=== PATIENT | female | born 1945 | race Caucasian/White ===

== ENCOUNTER 2021-11-20 14:54 | Outpatient (CLI) | payer MEDICARE, SELFPAY ==
--- NOTE | 2021-11-20 15:00 | CRLHL7_ITS ---
For Patients: As a result of the Century Cures Act, medical imaging exams and procedure reports are released immediately into your electronic medical record. You may view this report before your referring provider. If you have questions, please contact your health care provider. BILATERAL MAMMOGRAM WITH COMPUTER-AIDED DETECTION AND TOMOSYNTHESIS TECHNIQUE: CC and MLO views were obtained. These mammographic images have been obtained using full-field digital technique. These mammographic images were interpreted with the benefit of computer-aided detection. Breast Tomosynthesis was used in this interpretation. COMPARISON FILM: 10/15/2020, 10/13/2019, 07/19/2018. FINDINGS: There are scattered areas of fibroglandular density IMPRESSION: There is no radiographic evidence for malignancy. ASSESSMENT: BI-RADS Category 1: Negative RECOMMENDATION: Routine screening mammogram in 1 year. A lay language report of this examination will be provided to the patient. Rudolph Mancuso M.D. Diagnostic Radiologist [email or web address] ARUNA/Dictated by: Rudolph Mancuso MD @ 11/21/2021 10:04:00 AM (Electronically Signed)
== END 2021-11-20 14:55 | disposition home or self-care (01) ==
LOC: MAMMO 14:55
PROVIDERS: PCP Family Medicine; Visit Provider Family Medicine
DX: Z12.31 Encounter for screening mammogram for malignant neoplasm of breast (principal)
CPT/HCPCS: 77063; 77067

== ENCOUNTER 2021-12-16 08:02 | Outpatient (CLI) | payer MEDICARE, SELFPAY ==
--- NOTE | 2021-12-16 08:30 | CRLHL7_ITS ---
For Patients: As a result of the Century Cures Act, medical imaging exams and procedure reports are released immediately into your electronic medical record. You may view this report before your referring provider. If you have questions, please contact your health care provider. [facility] ??? [facility]BI[facility]AG[facility] MYOCARDIAL PERFUSION SCAN, 12/16/2021 CLINICAL HISTORY: 76-year-old female. Chest pain. Fatigue. Hypertension. Hyperlipidemia. Height 5 feet 5 inches, weight 230 pounds. TECHNIQUE: (Resting SPECT and stress gated SPECT with wall motion and ejection fraction) Stress: Pharmacologic ??? regadenoson (walking protocol, 0.4 mg IV) Dose (Stress/Rest): 37.9 mCi technetium-labeled sestamibi/10.3 mCi technetium-labeled sestamibi Comparison: None FINDINGS: There is good uptake of activity by the left ventricle. No left ventricular enlargement is noted. End-diastolic volume 61 mL. End-systolic volume 18 mL. There is diffuse soft tissue attenuation artifact compatible with breast attenuation artifact. There is also mild motion artifact on stress and less so on rest images. There are no significant fixed or reversible defects identified to indicate infarct or ischemia. The gated images demonstrate a normal left ventricular ejection fraction of 70%. No regional wall motion abnormalities are identified. IMPRESSION: 1) No evidence of significant myocardial ischemia or infarction. 2) Normal left ventricular ejection fraction of 70%. This study was jointly reviewed by Radiology and Cardiology. SCOORRO WEST M.D. Diagnostic/Nuclear Medicine Radiologist [facility] [employer] [facility] [email or web address] Transcribed: 3:18 p.mMaximino TURCIOS M.D. Department of Cardiology RD/Dictated by: Socorro West MD @ 12/16/2021 1:13:00 PM (Electronically Signed)
[2021-12-16 10:54] VITALS: BP 162/70; PULSE 83; RESP 16
[2021-12-16] MEDS: REGADENOSON 0.4 MG/5 ML SYRINGE IVP (10:58)
[2021-12-16] MEDS: SODIUM CHLORIDE 0.9 % (FLUSH) 10 ML SYRINGE IVF (10:59)
--- NOTE | 2021-12-16 17:10 | PM.ST ---
Stress Test Note Date Date Seen: 12/16/21 Date of test: 12/16/21 Providers Primary care provider: Roberto Carlos Arevalo Stress test physician: Jovan Hanna Stress Test Note Stress test ordered: Lexiscan Indication for test: Abnormal result of cardiac vascular function Stress test medicine: Lexiscan Results discussion: Patient is a very nice 76-year-old female who presents for the above test after discussion the risks benefits and side effects he would like to proceed cardiac stress test medical history form is reviewed. Pretest EKG shows normal sinus rhythm with a ventricular rate of 73 and a blood pressure 139/80. Diffuse ST wave says Flattening is noted. Standard infusion of Lexiscan is done over 5 minute. Maximum heart rate was 120, which is 96% of the maximum, there is no ST wave changes suggestive of ischemia, there is no dysrhythmia other than sinus tachycardia , she had no significant symptoms. Impression: Negative electrographic portion of stress Lexiscan Follow up suggested: Follow-up with primary care once nuclear images get red jointly by Cardiology and nuclear Medicine. Patient left this testing facility in excellent condition and dictation
== END 2021-12-16 08:03 | disposition home or self-care (01) ==
PROVIDERS: PCP Family Medicine; Visit Provider Family Medicine
DX: R07.89 Other chest pain (principal)
CPT/HCPCS: 78452; 93016; 93017; A9500; J2785

== ENCOUNTER 2022-11-16 08:43 | Outpatient (CLI) | payer MEDICARE, SELFPAY | END 2022-11-16 08:44 | disposition home or self-care (01) | PROVIDERS: PCP Family Medicine; Visit Provider Family Medicine | DX: I10 Essential (primary) hypertension (principal); E78.5 Hyperlipidemia, unspecified; E66.9 Obesity, unspecified; R53.83 Other fatigue; Z13.21 Encounter for screening for nutritional disorder; Z13.29 Encounter for screening for other suspected endocrine disorder | CPT/HCPCS: 80048; 80061; 82607; 84443 ==

== ENCOUNTER 2022-12-17 11:27 | Outpatient (CLI) | payer MEDICARE, SELFPAY ==
--- NOTE | 2022-12-17 11:30 | CRLHL7_ITS ---
For Patients: As a result of the Cures Act, medical imaging exams and procedure reports are released immediately into your electronic medical record. You may view this report before your referring provider. If you have questions, please contact your health care provider. BILATERAL SCREENING MAMMOGRAM WITH COMPUTER-AIDED DETECTION AND TOMOSYNTHESIS TECHNIQUE: CC and MLO views were obtained. These mammographic images have been obtained using full-field digital technique. These mammographic images were interpreted with the benefit of computer-aided detection. Breast Tomosynthesis was used in this interpretation. COMPARISON FILM: 11/20/21, 10/15/20, 10/13/19. FINDINGS: There are scattered areas of fibroglandular density IMPRESSION: There is no radiographic evidence for malignancy. ASSESSMENT: BI-RADS Category 1: Negative RECOMMENDATION: Routine screening mammogram in 1 year. A lay language report of this examination will be provided to the patient. Rudolph Mancuso M.D. Diagnostic Radiologist [email or web address] OLIVIA/you Transcribed: 4:33 p.mMaximino orta/Dictated by: Rudolph Mancuso MD @ 12/17/2022 12:10:00 PM (Electronically Signed)
== END 2022-12-17 11:28 | disposition home or self-care (01) ==
LOC: MAMMO 11:28
PROVIDERS: PCP Family Medicine; Visit Provider Family Medicine
DX: Z12.31 Encounter for screening mammogram for malignant neoplasm of breast (principal)
CPT/HCPCS: 77063; 77067

== ENCOUNTER 2023-11-19 08:35 | Outpatient (CLI) | payer MEDICARE, SELFPAY | END 2023-11-19 08:36 | disposition home or self-care (01) | PROVIDERS: PCP Family Medicine; Visit Provider Family Medicine | DX: Z00.00 Encounter for general adult medical examination without abnormal findings (principal); I10 Essential (primary) hypertension; E78.00 Pure hypercholesterolemia, unspecified; Z13.0 Encounter for screening for diseases of the blood and blood-forming organs and certain disorders involving the immune mechanism | CPT/HCPCS: 80048; 80061 ==

== ENCOUNTER 2024-11-21 09:39 | Outpatient (CLI) | payer MEDICARE, SELFPAY ==
[2024-11-21 13:38] LABS: Chloride* 103 mmol/L (96-114); Potassium* 5.2 mmol/L (3.6-5.1); Sodium* 141 mmol/L (135-149)
[2024-11-21 13:40] LABS: Blood Urea Nitrogen* 16 mg/dL (7-30); Cholesterol* 161 mg/dL (90-199); Creatinine* 0.8 mg/dL (0.5-1.5); Estimated Glomerular Filt Rate 76 ml/min
[2024-11-21 13:41] LABS: Anion Gap 9 mEq/L (7-15); Calcium* 10.3 mg/dL (8.4-10.6); Carbon Dioxide* 29 mmol/L (20-32); Glucose* 99 mg/dL (60-115); HDL Cholesterol* 54 mg/dL (>=50); Triglycerides* 97 mg/dL (40-149)
== END 2024-11-21 09:40 | disposition home or self-care (01) ==
PROVIDERS: PCP Family Medicine; Visit Provider Family Medicine
DX: E78.00 Pure hypercholesterolemia, unspecified (principal); I10 Essential (primary) hypertension
CPT/HCPCS: 80048; 80061

== ENCOUNTER 2024-11-27 11:03 | Outpatient (CLI) | payer MEDICARE, SELFPAY ==
--- NOTE | 2024-11-27 12:29 | P.ANES_ITS ---
Anesthesia Charges Start Date/Time Anesthesia Start Date: 11/27/24 Anesthesia Start Time: 11:53 Stop Date/Time Anesthesia Stop Date: 11/27/24 Anesthesia Stop Time: 12:24 Summary Extremes of Age - Over 70 or under 1: MAILS SUPERVISOR Coding CPT Codes CPT Codes: ANES LWR INTST NDSC NOS - 99157 ([id number]) P3 - PATIENT W/SEVERE SYS DISEASE, QK - CODE ENFORCEMENT INSPECTOR 2-4 CNCRNT ANES PROC, QX - MAILS SUPERVISOR SVC W/ MD MED DIRECTION Additional Codes: Summary - Extremes of Age - Over 70 or under 1: MAILS SUPERVISOR ([id number])
--- NOTE | 2024-11-27 12:29 | W.ANESCHARGE ---
Anesthesia Charges Start Date/Time Anesthesia Start Date: 11/27/24 Anesthesia Start Time: 11:53 Stop Date/Time Anesthesia Stop Date: 11/27/24 Anesthesia Stop Time: 12:24 Summary Extremes of Age - Over 70 or under 1: GEOTHERMAL ELECTRICAL ENGINEER Coding CPT Codes CPT Codes: ANES LWR INTST NDSC NOS - 69285 ([id number]) P3 - PATIENT W/SEVERE SYS DISEASE, QK - MARKETING CAMPAIGN ANALYST 2-4 CNCRNT ANES PROC, QX - GEOTHERMAL ELECTRICAL ENGINEER SVC W/ MD MED DIRECTION Additional Codes: Summary - Extremes of Age - Over 70 or under 1: GEOTHERMAL ELECTRICAL ENGINEER ([id number])
--- NOTE | 2024-11-27 13:10 | W.ANESCHARGE ---
Anesthesia Charges Start Date/Time Anesthesia Start Date: 11/27/24 Anesthesia Start Time: 11:53 Stop Date/Time Anesthesia Stop Date: 11/27/24 Anesthesia Stop Time: 12:24 Summary Extremes of Age - Over 70 or under 1: MDA Coding CPT Codes CPT Codes: ANES LWR INTST NDSC NOS - 14092 ([id number]) QK - SCALE AND SKIP CAR OPERATOR 2-4 CNCRNT ANES PROC, QX - GEOSCIENCE LABORATORY TECHNICIAN SVC W/ MD MED DIRECTION, P3 - PATIENT W/SEVERE SYS DISEASE Additional Codes: Summary - Extremes of Age - Over 70 or under 1: MDA ([id number])
== END 2024-11-27 11:04 | disposition home or self-care (01) ==
LOC: OP CLINIC 11:04
PROVIDERS: PCP Family Medicine; Visit Provider Surgery
DX: Z12.11 Encounter for screening for malignant neoplasm of colon (principal); Z86.0100 Personal history of colon polyps, unspecified; K57.30 Diverticulosis of large intestine without perforation or abscess without bleeding; K63.89 Other specified diseases of intestine; D12.3 Benign neoplasm of transverse colon
CPT/HCPCS: 00811; 45380; 45385; 88305; 99100; J2704

== ENCOUNTER 2025-02-28 10:17 | Outpatient (CLI) | payer MEDICARE, SELFPAY ==
--- NOTE | 2025-02-28 11:30 | CRLHL7_ITS ---
For Patients: As a result of the Century Cures Act, medical imaging exams and procedure reports are released immediately into your electronic medical record. You may view this report before your referring provider. If you have questions, please contact your health care provider. INDICATION: BILATERAL SCREENING MAMMOGRAM, ASYMPTOMATIC 79 Y/O FEMALE COMPARISON: 12/17/2022, 10/15/2020, 10/13/2019 TECHNIQUE: Digital mammogram in CC and MLO projections including computer-aided detection (CAD) and tomosynthesis. BREAST COMPOSITION: There are scattered areas of fibroglandular density. FINDINGS: No suspicious findings. ASSESSMENT: BI-RADS 1 Negative RECOMMENDATION: Annual screening mammogram. A lay language report of this examination will be provided to the patient. Dictated by: Leila Monge MD @ 03/02/2025 08:01:21 (Electronically Signed)
== END 2025-02-28 10:18 | disposition home or self-care (01) ==
LOC: MAMMO 10:18
PROVIDERS: PCP Family Medicine; Visit Provider Family Medicine
DX: Z12.31 Encounter for screening mammogram for malignant neoplasm of breast (principal)
CPT/HCPCS: 77063; 77067